=== PATIENT | female | born 2000 | race Hispanic/Latino ===

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

== ENCOUNTER → 2021-09-07 | Outpatient (CLI) | payer OTHER ==
[2021-09-07 16:39] LABS: HEMOGLOBIN A1C 5.7 % (4.0-6.0)
== END | disposition home or self-care (01) ==
LOC: LAB 15:59
PROVIDERS: ATTEND Obstetrics & Gynecology
DX: Z01.419 Encounter for gynecological examination (general) (routine) without abnormal findings (principal)
CPT/HCPCS: 36415; 83001; 83002; 83036; 84146; 84443

== ENCOUNTER 2021-12-04 16:33 | Emergency (ER) | payer OTHER ==
[~2021-12-04] VITALS: Ht 160 cm; Wt 61.2 kg
[2021-12-04 16:35] VITALS: BP 116/69
[2021-12-04] MEDS: CYCLOBENZAPRINE HCL 10 MG TABLET PO SCH (17:20)
[2021-12-04] MEDS: KETOROLAC 15MG/ML VIAL (15MG/ML) IM SCH (17:20)
[2021-12-04] MEDS ORDERED: KETO10TA2 PO (17:54)
[2021-12-04] MEDS ORDERED: CYCL5TAB PO (17:54)
== END 2021-12-04 18:02 | disposition home or self-care (01) ==
LOC: EDH 16:33
DX: M62.838 Other muscle spasm (principal); Z79.1 Long term (current) use of non-steroidal anti-inflammatories (NSAID)
CPT/HCPCS: 99283; 81025; 96372; J1885

== ENCOUNTER → 2022-02-25 | Outpatient (CLI) | payer OTHER ==
[~2022-02-25] MED LIST: CYCL5TAB PO; KETO10TA2 PO
[2022-02-25 12:06] LABS: EOSINOPHILS % (AUTO) 3.8 % (0.0-8.0); HEMATOCRIT 37.6 % (36-48); LYMPHOCYTES % (AUTO) 13.6 % (21.0-51.0); MEAN CORPUSCULAR HEMOGLOBIN 29.2 pg (27.0-33.0); MEAN CORPUSCULAR HGB CONC 33.8 g/dL (32.0-36.0); MEAN CORPUSCULAR VOLUME 86.4 fL (79-99); MONOCYTES % (AUTO) 8.9 % (3.0-13.0); NEUTROPHILS % (AUTO) 72.3 % (40.0-77.0); PLATELET COUNT (AUTO) 315 K/uL (130-400); RED BLOOD CELL COUNT(AUTO) 4.35 MIL/uL (4.00-5.50); RED CELL DISTRIBUTION WIDTH 12.6 % (11.0-15.5); WHITE BLOOD COUNT (AUTO) 10.8 K/uL (4.8-10.8)
[2022-02-26 08:06] LABS: RAPID PLASMA REAGIN NONREACTIVE (NONREACTIVE)
== END | disposition home or self-care (01) ==
LOC: LAB 11:13
PROVIDERS: ATTEND Obstetrics & Gynecology
DX: Z32.01 Encounter for pregnancy test, result positive (principal)
CPT/HCPCS: 36415; 85025; 86592; 86701; 86762; 86850; 86900; 86901; 87340; 87390; 87486

== ENCOUNTER 2022-03-03 22:59 | Emergency (ER) | payer OTHER ==
[~2022-03-03] VITALS: Ht 160 cm; Wt 61.7 kg
[2022-03-03 23:47] LABS: BASOPHILS % (AUTO) 0.5 % (0.0-5.0); EOSINOPHILS % (AUTO) 0.5 % (0.0-8.0); LYMPHOCYTES % (AUTO) 18.3 % (21.0-51.0); MEAN CORPUSCULAR HEMOGLOBIN 29.2 pg (27.0-33.0); MEAN CORPUSCULAR HGB CONC 33.6 g/dL (32.0-36.0); MEAN CORPUSCULAR VOLUME 87.1 fL (79-99); MONOCYTES % (AUTO) 5.6 % (3.0-13.0); NEUTROPHILS % (AUTO) 74.8 % (40.0-77.0); PLATELET COUNT (AUTO) 340 K/uL (130-400); RED BLOOD CELL COUNT(AUTO) 4.48 MIL/uL (4.00-5.50); RED CELL DISTRIBUTION WIDTH 12.2 % (11.0-15.5); WHITE BLOOD COUNT (AUTO) 10.5 K/uL (4.8-10.8)
[2022-03-03 23:48] LABS: APPEARANCE,URINE CLOUDY (CLEAR); BILIRUBIN,URINE NEGATIVE (NEGATIVE); COLOR,URINE YELLOW (YELLOW); GLUCOSE, URINE (UA) NEGATIVE (NEGATIVE); KETONES,URINE 5 mg/dL (NEGATIVE); LEUKOCYTE ESTERASE ,URINE NEGATIVE Leu/uL (NEGATIVE); NITRATE,URINE NEGATIVE (NEGATIVE); OCCULT BLOOD,URINE LARGE (NEGATIVE); PH,URINE 5.5 (5.0-8.0); PROTEIN,URINE 20 mg/dL (NEGATIVE); UROBILINOGEN,URINE 0.2 mg/dL (0.2-1.0)
[2022-03-04] LABS: MUCUS,URINE MOD LPF (None Seen); RBC,URINE 0-1 /HPF (0-1); SQUAMOUS EPITHELIAL CELL,UR MANY /HPF (0-2)
[2022-03-04 00:07] LABS: ALBUMIN 4.1 g/dL (3.5-5.0); CREATININE 0.7 mg/dL (0.5-1.5)
[2022-03-04 00:43] LABS: POTASSIUM 3.3 mmol/L (3.5-5.1)
[2022-03-04 03:27] VITALS: BP 135/78
== END 2022-03-04 03:34 | disposition home or self-care (01) ==
LOC: EDH 22:59
DX: O20.0 Threatened abortion (principal); Z3A.01 Less than 8 weeks gestation of pregnancy
CPT/HCPCS: 36415; 76801; 80053; 81001; 84702; 85025; 86900; 86901

== ENCOUNTER 2022-03-08 03:11 | Emergency (ER) | payer OTHER ==
[~2022-03-08] VITALS: Ht 160 cm; Wt 61.7 kg
[2022-03-08 04:09] LABS: BASOPHILS % (AUTO) 0.8 % (0.0-5.0); EOSINOPHILS % (AUTO) 2.2 % (0.0-8.0); HEMATOCRIT 39.2 % (36-48); LYMPHOCYTES % (AUTO) 26.8 % (21.0-51.0); MEAN CORPUSCULAR HEMOGLOBIN 29.7 pg (27.0-33.0); MEAN CORPUSCULAR HGB CONC 33.7 g/dL (32.0-36.0); MEAN CORPUSCULAR VOLUME 88.1 fL (79-99); MONOCYTES % (AUTO) 6.9 % (3.0-13.0); NEUTROPHILS % (AUTO) 62.9 % (40.0-77.0); PLATELET COUNT (AUTO) 342 K/uL (130-400); RED BLOOD CELL COUNT(AUTO) 4.45 MIL/uL (4.00-5.50); RED CELL DISTRIBUTION WIDTH 12.5 % (11.0-15.5); WHITE BLOOD COUNT (AUTO) 10.5 K/uL (4.8-10.8)
[2022-03-08 06:20] VITALS: BP 127/82
== END 2022-03-08 06:34 | disposition home or self-care (01) ==
LOC: EDH 03:11
DX: O03.4 Incomplete spontaneous abortion without complication (principal); Z3A.09 9 weeks gestation of pregnancy; Z98.890 Other specified postprocedural states
CPT/HCPCS: 36415; 76801; 84702; 85025

== ENCOUNTER 2022-03-11 06:08 | Day surgery (SDC) | payer OTHER ==
[2022-03-10 16:11] LABS: BASOPHILS % (AUTO) 0.7 % (0.0-5.0); LYMPHOCYTES % (AUTO) 26.4 % (21.0-51.0); MEAN CORPUSCULAR HEMOGLOBIN 29.5 pg (27.0-33.0); MEAN CORPUSCULAR HGB CONC 33.2 g/dL (32.0-36.0); MEAN CORPUSCULAR VOLUME 88.7 fL (79-99); MONOCYTES % (AUTO) 3.9 % (3.0-13.0); NEUTROPHILS % (AUTO) 67.9 % (40.0-77.0); PLATELET COUNT (AUTO) 320 K/uL (130-400); RED BLOOD CELL COUNT(AUTO) 4.17 MIL/uL (4.00-5.50); RED CELL DISTRIBUTION WIDTH 12.8 % (11.0-15.5); WHITE BLOOD COUNT (AUTO) 6.7 K/uL (4.8-10.8)
[2022-03-10 16:36] VITALS: BP 102/63
[~2022-03-11] VITALS: Ht 160 cm; Wt 61.1 kg
[2022-03-11] VITALS (12 sets, daily range): BP systolic 108–120; BP diastolic 55–76
[2022-03-11] MEDS ORDERED: CLINDAMYCIN IVPB 900MG/50ML 50 ML IV ONE (06:23)
[2022-03-11] MEDS ORDERED: LEVOFLOXACIN 500 MG/D5W 100 ML 100 ML ONE (06:23)
[2022-03-11] MEDS ORDERED: LACTATED RINGERS 1000ML 1,000 ML IV ONE (06:23)
[2022-03-11] MEDS ORDERED: GLYCOPYRROLATE 1 MG/5 ML SYRINGE ONE (06:51)
[2022-03-11] MEDS ORDERED: PROPOFOL 10 MG/ML 20ML VIAL IV ONE (06:51)
[2022-03-11] MEDS ORDERED: LIDOCAINE PF 100MG/5ML (2%) SYRINGE 5ML ONE (06:51)
[2022-03-11] MEDS ORDERED: SUCCINYLCHOLINE CHLORIDE 20 MG/ML 10 ML VIAL ONE (06:51)
[2022-03-11] MEDS ORDERED: MIDAZOLAM HCL 1 MG/ML 2ML VIAL ONE (06:52)
[2022-03-11] MEDS ORDERED: FENTANYL CITRATE PF 50 MCG/1 ML 2ML VIAL ONE (06:52)
[2022-03-11] MEDS ORDERED: ONDANSETRON 4MG INJ ONE (07:10)
[2022-03-11] MEDS ORDERED: OXYTOCIN 10 USP UNITS/ML ONE (07:27)
[2022-03-11] MEDS ORDERED: ALBU2.5V2 IH (07:29)
[2022-03-11] MEDS ORDERED: LACTATED RINGERS 1000ML 1,000 ML IV SCH (08:00)
[2022-03-11] MEDS ORDERED: LEVOFLOXACIN 500 MG/D5W 100 ML 100 ML IV SCH (08:00)
== END 2022-03-11 09:45 | disposition home or self-care (01) ==
LOC: DAH 06:08
PROVIDERS: ATTEND Obstetrics & Gynecology
DX: O03.4 Incomplete spontaneous abortion without complication (principal); Z20.822 Contact with and (suspected) exposure to COVID-19; J45.909 Unspecified asthma, uncomplicated
CPT/HCPCS: 85025; 86850; 86900; 86901; 87426; 36415; 59812; A4663; J7030; A4351 ×2; J7120; J3010; J3490 ×2; J1956; J0330; J2001; J2250; J2590; J2704; J2405; A4215; A4223; A4222; A4221; A4600

== ENCOUNTER → 2022-07-22 | Outpatient (CLI) | payer OTHER ==
[~2022-07-22] MED LIST changes: +ALBU2.5V2 IH; -CYCL5TAB PO; -KETO10TA2 PO
[2022-07-22 09:42] LABS: APPEARANCE,URINE CLOUDY (CLEAR); BILIRUBIN,URINE NEGATIVE (NEGATIVE); COLOR,URINE YELLOW (YELLOW); GLUCOSE, URINE (UA) NEGATIVE (NEGATIVE); KETONES,URINE NEGATIVE (NEGATIVE); LEUKOCYTE ESTERASE ,URINE 250 Leu/uL (NEGATIVE); NITRATE,URINE NEGATIVE (NEGATIVE); OCCULT BLOOD,URINE NEGATIVE (NEGATIVE); PH,URINE 5.5 (5.0-8.0); PROTEIN,URINE NEGATIVE (NEGATIVE); UROBILINOGEN,URINE 0.2 mg/dL (0.2-1.0)
[2022-07-22 09:50] LABS: MUCUS,URINE FEW LPF (None Seen); SQUAMOUS EPITHELIAL CELL,UR MANY /HPF (0-2)
== END | disposition home or self-care (01) ==
LOC: LAB 08:53
PROVIDERS: ATTEND Internal Medicine
DX: N39.0 Urinary tract infection, site not specified (principal); B37.31 Acute candidiasis of vulva and vagina
CPT/HCPCS: 81001; 87077; 87088; 87186

== ENCOUNTER → 2023-05-16 | Outpatient (CLI) | payer OTHER | END | disposition home or self-care (01) | LOC: RAH 14:28 | PROVIDERS: ATTEND Internal Medicine | DX: J20.9 Acute bronchitis, unspecified (principal) | CPT/HCPCS: 71046 ==

== ENCOUNTER → 2023-06-22 | Outpatient (CLI) | payer OTHER ==
[2023-06-22 11:14] LABS: BASOPHILS # (AUTO) 0.06 K/uL (0.00-0.20); BASOPHILS % (AUTO) 1.1 % (0.0-5.0); EOSINOPHILS # (AUTO) 0.12 K/uL (0.00-0.70); EOSINOPHILS % (AUTO) 2.2 % (0.0-8.0); IMMATURE GRANULOCYTE ABSOLUTE 0.01 K/uL (0-1); LYMPHOCYTES # (AUTO) 1.9 K/uL (1.0-4.8); LYMPHOCYTES % (AUTO) 34.3 % (21.0-51.0); MEAN CORPUSCULAR HEMOGLOBIN 30.1 pg (27.0-33.0); MEAN CORPUSCULAR HGB CONC 33.9 g/dL (32.0-36.0); MEAN CORPUSCULAR VOLUME 88.7 fL (79-99); MONOCYTES # (AUTO) 0.3 K/uL (0.1-1.0); MONOCYTES % (AUTO) 6.3 % (3.0-13.0); NEUTROPHILS % (AUTO) 55.9 % (40.0-77.0); PLATELET COUNT (AUTO) 300 K/uL (130-400); RED BLOOD CELL COUNT(AUTO) 4.62 MIL/uL (4.00-5.50); RED CELL DISTRIBUTION WIDTH 12.6 % (11.0-15.5); WHITE BLOOD COUNT (AUTO) 5.4 K/uL (4.8-10.8)
[2023-06-22 11:37] LABS: ALBUMIN 3.9 g/dL (3.5-5.0); BILIRUBIN,TOTAL 0.7 mg/dL (0.2-1.0); CREATININE 0.6 mg/dL (0.5-1.0); POTASSIUM 4.1 mmol/L (3.5-5.1); THYROID STIMULATING HORMONE 0.89 uIU/mL (0.36-3.74); TOTAL PROTEIN, SERUM 7.5 g/dL (6.0-8.3)
== END | disposition home or self-care (01) ==
LOC: LAB 10:25
PROVIDERS: ATTEND Internal Medicine
DX: J45.20 Mild intermittent asthma, uncomplicated (principal); E55.9 Vitamin D deficiency, unspecified; J30.9 Allergic rhinitis, unspecified; Z68.21 Body mass index [BMI] 21.0-21.9, adult; R53.83 Other fatigue
CPT/HCPCS: 36415; 80053; 82306; 84443; 85025

== ENCOUNTER → 2023-07-12 | Outpatient (CLI) | payer OTHER ==
[2023-07-12 12:21] LABS: THYROID STIMULATING HORMONE 0.82 uIU/mL (0.36-3.74)
[2023-07-13 09:14] LABS: RHEUMATOID ARTHRITIS FACTOR <10.0 IU/mL (<14.0)
[2023-07-14 14:13] LABS: HISTONE ANTIBODY IGG 0.4 Units (0.0-0.9)
== END ==
LOC: RAH 10:52
PROVIDERS: ATTEND Obstetrics & Gynecology
DX: Z00.00 Encounter for general adult medical examination without abnormal findings (principal); N64.4 Mastodynia; N63.22 Unspecified lump in the left breast, upper inner quadrant; E55.9 Vitamin D deficiency, unspecified; J30.9 Allergic rhinitis, unspecified; J45.20 Mild intermittent asthma, uncomplicated; R53.83 Other fatigue
CPT/HCPCS: 36415; 76642; 83516; 84439; 84443; 84481; 85651; 86038; 86140; 86160; 86215; 86235; 86376; 86431

== ENCOUNTER → 2024-01-23 | Outpatient (CLI) | payer OTHER ==
[2024-01-23 12:46] LABS: BASOPHILS # (AUTO) 0.07 K/uL (0.00-0.20); BASOPHILS % (AUTO) 0.8 % (0.0-5.0); EOSINOPHILS # (AUTO) 0.16 K/uL (0.00-0.70); EOSINOPHILS % (AUTO) 1.9 % (0.0-8.0); HEMATOCRIT 38.6 % (36-48); IMMATURE GRANULOCYTE ABSOLUTE 0.03 K/uL (0-1); LYMPHOCYTES # (AUTO) 2.4 K/uL (1.0-4.8); LYMPHOCYTES % (AUTO) 28.5 % (21.0-51.0); MEAN CORPUSCULAR HEMOGLOBIN 30.4 pg (27.0-33.0); MEAN CORPUSCULAR HGB CONC 33.9 g/dL (32.0-36.0); MEAN CORPUSCULAR VOLUME 89.6 fL (79-99); MONOCYTES # (AUTO) 0.5 K/uL (0.1-1.0); MONOCYTES % (AUTO) 5.7 % (3.0-13.0); NEUTROPHILS # (AUTO) 5.4 K/uL (1.8-7.7); NEUTROPHILS % (AUTO) 62.7 % (40.0-77.0); PLATELET COUNT (AUTO) 309 K/uL (130-400); RED BLOOD CELL COUNT(AUTO) 4.31 MIL/uL (4.00-5.50); RED CELL DISTRIBUTION WIDTH 12.1 % (11.0-15.5); WHITE BLOOD COUNT (AUTO) 8.6 K/uL (4.8-10.8)
[2024-01-23 12:53] LABS: ALBUMIN 3.7 g/dL (3.5-5.0); BILIRUBIN,DIRECT 0.1 mg/dL (0.0-0.3); BILIRUBIN,TOTAL 0.6 mg/dL (0.2-1.0); CREATININE 0.6 mg/dL (0.5-1.0); POTASSIUM 3.6 mmol/L (3.5-5.1); THYROID STIMULATING HORMONE 1.46 uIU/mL (0.36-3.74); TOTAL PROTEIN, SERUM 7.1 g/dL (6.0-8.3)
[2024-01-23 13:00] LABS: HEMOGLOBIN A1C 5.1 % (4.0-6.0)
[2024-01-23 13:06] LABS: ADD UA MICROSCOPIC YES; APPEARANCE,URINE CLOUDY (CLEAR); BILIRUBIN,URINE NEGATIVE (NEGATIVE); COLOR,URINE YELLOW (YELLOW); GLUCOSE, URINE (UA) NEGATIVE (NEGATIVE); KETONES,URINE 10 mg/dL (NEGATIVE); LEUKOCYTE ESTERASE ,URINE NEGATIVE Leu/uL (NEGATIVE); NITRATE,URINE NEGATIVE (NEGATIVE); OCCULT BLOOD,URINE NEGATIVE (NEGATIVE); PROTEIN,URINE 20 mg/dL (NEGATIVE); UROBILINOGEN,URINE 0.2 mg/dL (0.2-1.0)
[2024-01-23 13:09] LABS: BACTERIA,URINE FEW /HPF (None Seen); MUCUS,URINE MANY LPF (None Seen); SQUAMOUS EPITHELIAL CELL,UR MANY /HPF (0-2)
== END | disposition home or self-care (01) ==
LOC: LAB 11:50
PROVIDERS: ATTEND Internal Medicine
DX: Z13.1 Encounter for screening for diabetes mellitus (principal); Z13.220 Encounter for screening for lipoid disorders; R53.83 Other fatigue; E55.9 Vitamin D deficiency, unspecified; J30.9 Allergic rhinitis, unspecified; J45.20 Mild intermittent asthma, uncomplicated
CPT/HCPCS: 36415; 80053; 80061; 81001; 82043; 82248; 82570; 83036; 84443; 85025

== ENCOUNTER 2024-04-19 03:01 | Emergency (ER) | payer OTHER ==
[~2024-04-19] VITALS: Ht 160 cm; Wt 56.7 kg
--- NOTE | 2024-04-19 03:04 | NUR ---
UA CUP PROVIDED
--- NOTE | 2024-04-19 03:06 | NUR ---
REPORT TO ALEC HOFF
[2024-04-19 03:30] VITALS: BP 108/68; PULSE 81; RESP 17; TEMP 97.5; O2SAT 100
[2024-04-19] MEDS: MICONAZOLE NITRATE TP ONE (03:48)
--- NOTE | 2024-04-19 03:55 | ERN ---
General Chief Complaint: Other Problems Stated Complaint: VAGINAL ITCHING Time Seen by MD: 03:04 Source: patient History of Present Illness Initial Comments Patient is a 23-year-old female who presented to the emergency room with a 3 day history of vaginal itching and discomfort. There is associated discharge, described as thick and whitish. Patient admits to recent antibiotic use. Had been to her PCP yesterday and was diagnosed with yeast infection and placed on oral fluconazole. Patient states that the discomfort and itching became unbearable so she decided to come to the emergency room for evaluation. Denies any dysuria, fever or chills. Allergies: Coded Allergies: No Known Allergies (Verified Allergy, Unknown, 05/09/18) Penicillins (Unverified Allergy, Unknown, RASH, 03/11/22) Home Meds Reported Medications Albuterol Sulfate (Albuterol Sulfate) 2.5 Mg/3 Ml Vial.neb, 2.5 MG IH AD for SOB/WHEEZING, INH 03/11/22 Past Medical History Past Medical History: No Pertinent History Medical History Other: SCOLIOSIS Past Surgical History: None Surgical History Other: NASAL SEPTUM Social History Social History: Negative, Other Female( History) LMP: Mar 08, 2024 : 1 Para: 1 Aborts: 0 ROS Dictation Constitutional: No appetite loss, No fevers, chills , No night sweats, No weakness, fatigue Eye: No vision change, No redness, pain or discharge ENT: No hearing loss, ear pain or discharge, No nose bleeds, No sore throat, Neck: No swelling. pain or stiffness Respiratory: No cough, shortness of breath, wheezing Cardiovascular: No chest pain,, palpitations, dyspnea, No edema Gastrointestinal: No abdominal pain, No nausea, vomiting, No diarrhea, constipation Genitourinary: No painful urination, vaginal itching and discomfort Musculoskeletal: No joint pain, muscle pain, swelling or stiffness Neurological: No numbness, tingling, No weakness, tremors or seizures Psychiatric: : No depression, No anxiety, No sleep disturbance, No Memory changes Lymphatic: No easy bruising, No bleeding tendencies , No swollen lymph nodes A 13-point Review of Systems was assessed, all of which are negative except for HPI or as indicated above. Physical Exam Physical Exam Dictation General: Alert & Oriented, No acute distress. EENT: No conjunctival redness or discharge noted Tympanic membranes are clear, Normal hearing, Neck: Non-tender, No jugular vein distention, No lymphadenopathy, No thyromegaly, Supple. Respiratory: Lungs are clear to auscultation, Respirations are non-labored, Breath sounds are equal, No chest wall tenderness, _. Cardiovascular: Normal rate, Normal rhythm, No murmur, Good pulses equal in all extremities, Normal peripheral perfusion, No edema. Gastrointestinal: Soft, Non-tender, Non-distended, Normal bowel sounds, No organomegaly, _. Musculoskeletal: Normal range of motion, Normal strength, No tenderness, No swelling, No deformity, Normal gait. Genitourinary: Thick whitish vaginal discharge Integumentary: Warm, Dry, [place], Intact, No pallor, No rash. Neurologic: Alert, Oriented x4, Normal sensory, No focal defects Psychiatric: Cooperative, Appropriate mood & affect, Normal judgement, Non- suicidal. MDM Potential differential diagnoses include: * Vaginal candidiasis Assessment: At this time there is no need a blood work. Assessment showed thick whitish discharge on examination. Patient is currently on fluconazole p.o.. We will order miconazole ointment for relief. Given the social determinants of health affecting care, including literacy, access to medical care, prescription drug management, and [id number] drugs, I will ensure that treatment plans are tailored accordingly. Revaluation : Patient is alert and oriented. States she feels a lot better . Disposition: Will discharge patient at this time with prescription of Miconazole ointment and instructions to follow up with PCP for further evaluation and treatment. Attestation: Patient's case was discussed with the ER MD. Reviewed the documentation, medical decision making and treatment plan. Agrees with the findings and plan of care. ED Course Orders Procedure Category Date Status Time Miconazole Nitrate PHA 04/19/24 Complete (Miconazole Nitrate) 03:30 Current Medications Medications (Trade) Dose Ordered Sig/Rosanne Route PRN Reason Start Time Stop Time Status Last Admin Dose Admin Miconazole Nitrate (Miconazole Nitrate) 1 appl ONCE ONCE TP 04/19/24 03:30 04/19/24 03:31 DC 04/19/24 03:48 Vital Signs Date Time Temp Pulse Resp B/P (MAP) Pulse Ox O2 Delivery O2 Flow Rate FiO2 04/19/24 03:30 97.5 81 17 108/68 100 Room Air* 0 21 04/19/24 03:02 97.5 74 18 109/74 100 Room Air DX & DISP Disposition: Discharge Departure Impression: Primary Impression: Vaginal candidiasis Critical Time: 30 minutes Condition: Stable Additional Instructions: Discharge Instructions *Follow up with your primary care physician in 2-3 days for further evaluation and management *Take all prescribed antifungal medications as directed *Keep the vaginal area clean and dry. Avoid prolonged moisture such as sitting in wet swimsuit *Wear loose-fitting, cotton underwear to improve airflow are reduce moisture *Avoid using scented soaps, sprays or powders in the genital area. *Practice good hygiene. Wipe front to back after use in the restroom. *Avoid unnecessary antibiotics use as it can disrupt normal vaginal flow Referrals: MANJINDER ALCOCER MD (PCP) I performed a substantive portion of the visit. I have reviewed and personally made and approve the management plan that is documented in the notes by myself with TERESE/resident. I acknowledged full responsibility for the patient's management plan. MADELEINE ESQUIVEL MD Apr 19, 2024 03:55 JADIEL MINOR DO Apr 19, 2024 03:58
== END 2024-04-19 04:00 | disposition home or self-care (01) ==
LOC: EDH 03:01
DX: B37.31 Acute candidiasis of vulva and vagina (principal); Z79.899 Other long term (current) drug therapy; Z88.0 Allergy status to penicillin
CPT/HCPCS: 99283

== ENCOUNTER → 2024-04-19 | Outpatient (CLI) | payer OTHER ==
[2024-04-19 15:04] LABS: HCG QUALITATIVE NEGATIVE (NEGATIVE)
[2024-04-19 15:16] LABS: APPEARANCE,URINE CLOUDY (CLEAR); BILIRUBIN,URINE NEGATIVE (NEGATIVE); COLOR,URINE YELLOW (YELLOW); GLUCOSE, URINE (UA) NEGATIVE (NEGATIVE); KETONES,URINE 150 mg/dL (NEGATIVE); LEUKOCYTE ESTERASE ,URINE 500 Leu/uL (NEGATIVE); NITRATE,URINE NEGATIVE (NEGATIVE); OCCULT BLOOD,URINE SMALL (NEGATIVE); PH,URINE 5.5 (5.0-8.0); PROTEIN,URINE 30 mg/dL (NEGATIVE); UROBILINOGEN,URINE 0.2 mg/dL (0.2-1.0)
[2024-04-19 15:22] LABS: ADD UA MICROSCOPIC YES
[2024-04-19 15:24] LABS: BACTERIA,URINE RARE /HPF (None Seen); MUCUS,URINE FEW LPF (None Seen); RBC,URINE 26-50 /HPF (0-1); SQUAMOUS EPITHELIAL CELL,UR MANY /HPF (0-2); WBC,URINE 51-100 /HPF (0-1)
[2024-04-19 15:54] LABS: HIV 1&2 ANTIBODY Non-Reactive (Negative); HIV-1 p24 Antigen Non-Reactive (Negative)
== END | disposition home or self-care (01) ==
LOC: LAB 13:42
PROVIDERS: ATTEND Internal Medicine
DX: R30.0 Dysuria (principal); Z20.2 Contact with and (suspected) exposure to infections with a predominantly sexual mode of transmission; Z79.899 Other long term (current) drug therapy
CPT/HCPCS: 36415; 81001; 84703; 86695; 86696; 86701; 87086; 87390; 87491; 87591

== ENCOUNTER → 2024-10-30 | Outpatient (CLI) | payer OTHER ==
[2024-10-30 15:18] LABS: ASPARTATE AMINOTRANSFERASE 11.0 U/L (10-37); CREATININE 0.6 mg/dL (0.5-1.0); GLOMERULAR FILTR. RATE CALC 128.0 mL/min (>90); GLUCOSE,RANDOM 103.0 mg/dL (70-105); SODIUM SERUM 138.0 mmol/L (136-145); TOTAL PROTEIN, SERUM 7.1 g/dL (6.0-8.3); UREA NITROGEN, BLOOD 10.0 mg/dL (7-18)
== END | disposition home or self-care (01) ==
LOC: LAB 14:23
PROVIDERS: ATTEND Internal Medicine
DX: B37.31 Acute candidiasis of vulva and vagina (principal); H81.10 Benign paroxysmal vertigo, unspecified ear; K52.9 Noninfective gastroenteritis and colitis, unspecified
CPT/HCPCS: 36415; 80053; 83630; 83993

== ENCOUNTER → 2025-01-22 | Outpatient (CLI) | payer OTHER ==
[2025-01-22 12:47] LABS: IMMATURE GRANULOCYTE ABSOLUTE 0.01 K/uL (0-1); NUCLEATED RED BLOOD CELLS 0.0 % (0.0-0.19); PLATELET COUNT (AUTO) 289 K/uL (130-400); RED BLOOD CELL COUNT(AUTO) 4.16 MIL/uL (4.00-5.50); RED CELL DISTRIBUTION WIDTH 12.2 % (11.0-15.5); WHITE BLOOD COUNT (AUTO) 5.1 K/uL (4.8-10.8)
[2025-01-22 12:51] LABS: APPEARANCE,URINE CLOUDY (CLEAR); GLUCOSE, URINE (UA) NEGATIVE (NEGATIVE); LEUKOCYTE ESTERASE ,URINE NEGATIVE Leu/uL (NEGATIVE); NITRATE,URINE NEGATIVE (NEGATIVE); OCCULT BLOOD,URINE NEGATIVE (NEGATIVE)
[2025-01-22 12:57] LABS: ADD UA MICROSCOPIC YES
[2025-01-22 13:17] LABS: SQUAMOUS EPITHELIAL CELL,UR 30-50 /HPF (0-2)
[2025-01-22 13:26] LABS: ASPARTATE AMINOTRANSFERASE 12.0 U/L (10-37); CREATININE 0.6 mg/dL (0.5-1.0); GLOMERULAR FILTR. RATE CALC 128.0 mL/min (>90); GLUCOSE,RANDOM 83.0 mg/dL (70-105); LDL DIRECT 81.0 mg/dL (0-99); SODIUM SERUM 138.0 mmol/L (136-145); TOTAL PROTEIN, SERUM 7.5 g/dL (6.0-8.3); UREA NITROGEN, BLOOD 10.0 mg/dL (7-18)
== END | disposition home or self-care (01) ==
LOC: LAB 15:48
PROVIDERS: ATTEND Internal Medicine
DX: K52.9 Noninfective gastroenteritis and colitis, unspecified (principal); I88.9 Nonspecific lymphadenitis, unspecified; E04.9 Nontoxic goiter, unspecified; J30.9 Allergic rhinitis, unspecified; R19.5 Other fecal abnormalities; R19.8 Other specified symptoms and signs involving the digestive system and abdomen; R30.0 Dysuria; R53.83 Other fatigue
CPT/HCPCS: 36415; 80053; 80061; 80076; 81001; 82043; 82270; 82306; 82570; 82607; 83036; 83630; 84443; 85025; 87046; 87086; 87177; 87338